=== PATIENT | female | born 2000 | race American Indian/Alaskan Native ===

== ENCOUNTER 2019-02-07 11:02 | Emergency (ER) | payer MEDICAID ==
[2019-02-07 11:33] LABS: Basophils % (Auto) 0.6 % (0.0-1.8); Eosinophils # (Auto) 0.1 K/mm3 (0.0-0.4); Eosinophils % (Auto) 1.1 % (0.0-4.3); Hematocrit 37.1 % (30.3-42.9); Hemoglobin 12.3 gm/dl (10.1-14.3); Lymphocytes # (Auto) 2.3 K/mm3 (1.2-5.4); Lymphocytes % (Auto) 32.4 % (13.4-35.0); Mean Corpuscular HGB Conc 33 % (30-34); Mean Corpuscular Volume 81 fl (79-97); Monocytes # (Auto) 0.5 K/mm3 (0.0-0.8); Monocytes % (Auto) 7.4 % (0.0-7.3); Platelet Count 197 K/mm3 (140-440); Red Blood Count 4.57 M/mm3 (3.65-5.03); Red Cell Distribution Width 15.5 % (13.2-15.2)
[2019-02-07 12:19] VITALS: BP 121/69
--- NOTE | 2019-02-07 12:20 | Emergency Department Report ---
ED Female HPI - General Chief complaint: Vaginal Bleeding Stated complaint: VAGINAL BLEEDING Time Seen by Provider: 02/07/19 12:14 Source: patient Mode of arrival: Ambulatory Limitations: No Limitations - History of Present Illness Initial comments: Patient is 18 years old female 3 para 0 at 12 weeks gestation followed by [facility]. Patient presented to the ER complaining of vaginal bleeding and lower abdominal cramping started this morning. Patient denied any nausea or vomiting. No dizziness, shortness of breath or chest pain. MD Complaint: vaginal bleeding, pelvic pain -: This morning Location: suprapubic Severity: moderate Severity scale (0 -10): 4 Quality: cramping Consistency: intermittent Are you Now?: Yes (12 wks) - Related Data Sexually active: Yes Allergies Allergy/AdvReac Type Severity Reaction Status Date / Time No Known Allergies Allergy Unverified 02/07/19 11:04 ED Review of Systems ROS: Stated complaint: VAGINAL BLEEDING Other details as noted in HPI Comment: All other systems reviewed and negative Constitutional: denies: chills, fever Respiratory: denies: cough, orthopnea, shortness of breath, SOB with exertion, SOB at rest, wheezing Cardiovascular: denies: chest pain, palpitations Gastrointestinal: denies: abdominal pain, nausea, vomiting, diarrhea, c onstipation, hematemesis, melena, hematochezia Musculoskeletal: denies: back pain Neurological: denies: headache, weakness, numbness, paresthesias, confusion ED Past Medical Hx - Past Medical History Previous Medical History?: No - Surgical History Past Surgical History?: Yes Hx Appendectomy: Yes - Social History Smoking Status: Never Smoker Substance Use Type: None ED Physical Exam - General Limitations: No Limitations - Head Head exam: Present: atraumatic, normocephalic, normal inspection - Eye Eye exam: Present: normal appearance, PERRL - ENT ENT exam: Present: normal exam, normal orophraynx, mucous membranes moist - Neck Neck exam: Present: normal inspection, full ROM. Absent: tenderness, meningismus, lymphadenopathy, thyromegaly - Respiratory Respiratory exam: Present: normal lung sounds bilaterally. Absent: respiratory distress, wheezes, rales, rhonchi, chest wall tenderness, accessory muscle use, decreased breath sounds, prolonged expiratory - Cardiovascular Cardiovascular Exam: Present: regular rate, normal rhythm, normal heart sounds - GI/Abdominal GI/Abdominal exam: Present: soft, normal bowel sounds. Absent: distended, tenderness, guarding, rebound, rigid, organomegaly, mass, bruit, pulsatile mass - Extremities Exam Extremities exam: Present: normal inspection, full ROM, normal capillary refill. Absent: tenderness, pedal edema, calf tenderness - Back Exam Back exam: Present: normal inspection, full ROM. Absent: tenderness, CVA tenderness (R), CVA tenderness (L), muscle spasm, paraspinal tenderness, vertebral tenderness - Neurological Exam Neurological exam: Present: alert, oriented X3, CN II-XII intact, normal gait, reflexes normal - Psychiatric Psychiatric exam: Present: normal mood - Skin Skin exam: Present: warm, intact, normal color ED Course Vital Signs 02/07/19 02/07/19 02/07/19 11:05 12:14 12:15 Temperature 98.2 F Pulse Rate 96 H Respiratory 18 Rate Blood Pressure 132/80 Blood Pressure [Left] O2 Sat by Pulse 100 99 99 Oximetry 02/07/19 12:19 Temperature 98.8 F Pulse Rate 71 Respiratory Rate Blood Pressure Blood Pressure 121/69 [Left] O2 Sat by Pulse Oximetry ED Medical Decision Making - Lab Data Result diagrams: 02/07/19 11:18 - Radiology Data Radiology results: report reviewed Referring Physician: MICHAEL FLANNERY Patient Name: JANETTE MOREIRA Date of : 2000 Sex: Female Report Date: 2019-02-07 Report Status: [place] [address] Ultrasound Report Signed Patient: JANETTE MOREIRA MR#: [id number] : 2000 Acct:[id number] Age/Sex: 18 / F ADM Date: 02/07/19 Loc: ED Attending Dr: Ordering Physician: MICHAEL FLANNERY Date of Service: 02/07/19 Procedure(s): US OB transvaginal Accession Number(s): [id number] cc: MICHAEL FLANNERY PROCEDURE: US OB <= 14 WEEKS FETUS, US OB TRANSVAGINAL TECHNIQUE: Real-time transabdominal and transvaginal sonography of the pelvis was performed with image documentation. Measurements were obtained to determine age/size. M- mode Doppler was used to document heartbeat. HISTORY: Vaginal bleeding COMPARISONS: None . FINDINGS: MATERNAL: Uterus and cervix: The cervix is closed measures 3.3 cm in length. Small amount of fluid within the cervix. Adnexa and ovaries: Right ovary measures 2.1 x 2 x 2 cm. There is a thick-walled 1.5 x 1.1 x 1.3 cm cyst likely representing a of a corpus luteum cyst. IUP: Single live intrauterine gestation. Cardiac activity: Regular rhythm at 159 bpm. BIOMETRY: [place]-rump length: 5.75 cm, corresponding to a gestational age of 12 weeks, 2 days, with estimated date of delivery of 08/20/2019 IMPRESSION: Single live intrauterine gestation at 12 weeks, 2 days. Estimated due date: 08/20/2019. Small amount of free fluid in the cervix, which remains elongated. No cervical funneling. This document is electronically signed by Africa Armstrong MD., February 07 2019 03:12:12 PM ET Transcribed By: AISHA Dictated By: AFRICA ARMSTRONG MD Electronically Authenticated By: AFRICA ARMSTRONG MD Signed Date/Time: 02/07/19 1514 DD/ 1303 TD/TT: 02/07/19 1428 - Medical Decision Making Patient is 18 years old female 3 para 0 at 12 weeks gestation followed by [facility]. Patient presented to the ER complaining of vaginal bleeding and lower abdominal cramping started this morning. Patient denied any nausea or vomiting. No dizziness, shortness of breath or chest pain. The patient advised to follow-up with her OB doctor in the next 2-3 days. Critical care attestation.: If time is entered above; I have spent that time in minutes in the direct care of this critically ill patient, excluding procedure time. ED Disposition Clinical Impression: Vaginal bleeding before 22 weeks gestation Disposition: DC-01 TO HOME OR SELFCARE Is pt being admited?: No Condition: Stable Instructions: Abdominal Pain in (ED) Referrals: PRIMARY MEDICAL CARE [Provider Group] - 3-5 Days
--- NOTE | 2019-02-07 15:14 | Ultrasound Report ---
PROCEDURE: US OB <= 14 WEEKS FETUS, US OB TRANSVAGINAL TECHNIQUE: Real-time transabdominal and transvaginal sonography of the pelvis was performed with lev ge documentation. Measurements were obtained to determine age/size. M-mode Doppler was used to document heartbeat. HISTORY: Vaginal bleeding COMPARISONS: None . FINDINGS: MATERNAL: Uterus and cervix: The cervix is closed measures 3.3 cm in length. Small amount of fluid within the cervix. Adnexa and ovaries: Right ovary measures 2.1 x 2 x 2 cm. There is a thick-walled 1.5 x 1.1 x 1.3 cm c yst likely representing a of a corpus luteum cyst. IUP: Single live intrauterine gestation. Cardiac activity: Regular rhythm at 159 bpm. BIOMETRY: [place]-rump length: 5.75 cm, corresponding to a gestational age of 12 weeks, 2 days, with estimated da te of delivery of 08/20/2019 IMPRESSION: Single live intrauterine gestation at 12 weeks, 2 days. Estimated due date: 08/20/2019. Small amount of free fluid in the cervix, which remains elongated. No cervical funneling. This document is electronically signed by Africa Armstrong MD., February 07 2019 03:12:12 PM ET
== END 2019-02-07 14:30 | disposition home or self-care (01) ==
LOC: ED 11:02
DX: O46.91 Antepartum hemorrhage, unspecified, first trimester (principal); Z3A.12 12 weeks gestation of pregnancy; Z90.49 Acquired absence of other specified parts of digestive tract
CPT/HCPCS: 36415; 76801; 76817; 84702; 85025; 86900; 86901; 99284

== ENCOUNTER 2019-12-27 12:01 | Emergency (ER) | payer SELFPAY ==
--- NOTE | 2019-12-27 12:46 | Emergency Department Report ---
Blank Doc - Documentation Documentation: 19-year-old female that presents with dysuria and urinary frequency. This initial assessment/diagnostic orders/clinical plan/treatment(s) is/are subject to change based on patient's health status, clinical progression and re- assessment by fellow clinical providers in the ED. Further treatment and workup at subsequent clinical providers discretion. Patient/guardians urged not to elope from the ED as their condition may be serious if not clinically assessed and managed. Initial orders include: 1- Patient sent to [facility] for further evaluation and treatment 2- UA
[2019-12-27 12:49] VITALS: BP 135/80
[2019-12-27 14:17] LABS: Bacteria,Urine 1+ /HPF (Negative); Bilirubin,Urine NEG (Negative); Blood,Urine NEG (Negative); Color,Urine Yellow (Yellow); Mucus,Urine 3+ /HPF; Protein,Urine <15 mg/dL mg/dL (Negative); Urobilinogen,Urine < 2.0 mg/dL (<2.0)
--- NOTE | 2019-12-27 16:12 | Emergency Department Report ---
ED Female HPI - General Chief complaint: Urogenital-Female Stated complaint: UTI Time Seen by Provider: 12/27/19 12:46 Source: patient Mode of arrival: Ambulatory Limitations: No Limitations - History of Present Illness Initial comments: This is a 19-year-old -[place] female who presents to the emergency room with urinary frequency, urgency, and pelvic pressure for 3 days. Last menstrual period was in 2018. Patient states recently delivered vaginally and have a IUD. No significant past medical history. Denies vaginal discharge, fever, chills, dysuria, and back pain. MD Complaint: pelvic pain Onset/Timin -: days(s) Location: suprapubic Radiation: non-radiating Severity: mild Severity scale (0 -10): 3 Quality: other (Pressure) Consistency: intermittent Worsens with: urination Are you Now?: No Last Menstrual Period: 04/30/18 EDC: 02/04/19 Associated Symptoms: denies other symptoms - Related Data Sexually active: Yes Previous Rx's Medication Instructions Recorded Last Taken Type Phenazopyridine [Pyridium] 200 mg PO TID #6 tab 12/27/19 Unknown Rx Sulfamethoxazole/Trimethoprim 1 each PO BID #6 tablet 12/27/19 Unknown Rx [Bactrim DS TAB] Allergies Allergy/AdvReac Type Severity Reaction Status Date / Time No Known Allergies Allergy Unverified 02/07/19 11:04 ED Review of Systems ROS: Stated complaint: UTI Other details as noted in HPI Constitutional: denies: chills, fever Respiratory: denies: cough, shortness of breath, wheezing Cardiovascular: denies: chest pain, palpitations Gastrointestinal: abdominal pain. denies: nausea, diarrhea Genitourinary: urgency, frequency. denies: dysuria, discharge Musculoskeletal: denies: back pain, joint swelling, arthralgia Skin: denies: rash, lesions Neurological: denies: headache, weakness, paresthesias Psychiatric: denies: anxiety, depression ED Past Medical Hx - Past Medical History Previous Medical History?: No - Surgical History Past Surgical History?: Yes Hx Appendectomy: Yes - Social History Smoking Status: Never Smoker Substance Use Type: Marijuana - Medications Home Medications: Home Medications Medication Instructions Recorded Confirmed Last Taken Type Phenazopyridine [Pyridium] 200 mg PO TID #6 tab 12/27/19 Unknown Rx Sulfamethoxazole/Trimethoprim 1 each PO BID #6 tablet 12/27/19 Unknown Rx [Bactrim DS TAB] ED Physical Exam - General Limitations: No Limitations General appearance: alert, in no apparent distress, obese (Morbidly obese thinks) - Respiratory Respiratory exam: Present: normal lung sounds bilaterally. Absent: respiratory distress - Cardiovascular Cardiovascular Exam: Present: regular rate, normal rhythm. Absent: systolic murmur, diastolic murmur, rubs, gallop - GI/Abdominal GI/Abdominal exam: Present: soft, normal bowel sounds. Absent: distended, tenderness, guarding, rebound, rigid - Extremities Exam Extremities exam: Present: normal inspection - Back Exam Back exam: Absent: CVA tenderness (R), CVA tenderness (L) - Neurological Exam Neurological exam: Present: alert, oriented X3, normal gait - Psychiatric Psychiatric exam: Present: normal affect, normal mood - Skin Skin exam: Present: warm, dry, intact, normal color. Absent: rash ED Course Vital Signs 12/27/19 12:46 Temperature 97.9 F Pulse Rate 89 Respiratory 18 Rate Blood Pressure 135/80 O2 Sat by Pulse 96 Oximetry ED Medical Decision Making - Lab Data Lab Results 12/27/19 12/27/19 Range/Units 13:43 13:45 HCG, Qual Negative (Negative) Urine Color Yellow (Yellow) Urine Turbidity Slightly-cloudy (Clear) Urine pH 5.0 (5.0-7.0) Ur Specific Iva 1.019 (1.003-1.030) Urine Protein <15 mg/dl (Negative) mg/dL Urine Glucose (UA) Neg (Negative) mg/dL Urine Ketones Neg (Negative) mg/dL Urine Blood Neg (Negative) Urine Nitrite Neg (Negative) Urine Bilirubin Neg (Negative) Urine Urobilinogen < 2.0 (<2.0) mg/dL Ur Leukocyte Esterase Lg (Negative) Urine WBC (Auto) 141.0 H (0.0-6.0) /HPF Urine RBC (Auto) 7.0 (0.0-6.0) /HPF U Epithel Cells (Auto) 5.0 (0-13.0) /HPF Urine Bacteria (Auto) 1+ (Negative) /HPF Urine Mucus 3+ /HPF - Medical Decision Making This is a 19-year-old -[place] female who presents to the emergency room with urinary frequency, urgency, and pelvic pressure for 3 days. Vitals are stable. Patient is nontoxic appearing and in no acute distress. Work-up: Urinalysis and urine test. There is a large amount of leukocyte Estrace and elevated WBCs on urinalysis. Negative test. Abdomen is nontender on exam. Patient will be treated for acute cystitis with antibiotics. Discharged home stable with strict return instructions. Follow-up with PCP if worsening symptoms after 2 to 3 days of therapy. Critical care attestation.: If time is entered above; I have spent that time in minutes in the direct care of this critically ill patient, excluding procedure time. ED Disposition Clinical Impression: UTI symptoms Acute cystitis Qualifiers: Hematuria presence: without hematuria Qualified Code(s): N30.00 - Acute cystitis without hematuria Disposition: TO HOME OR SELFCARE Is pt being admited?: No Condition: Stable Instructions: Urinary Tract Infection in Women (ED) Additional Instructions: Increase fluid intake to 1 L to 2 L daily. Complete antibiotics as prescribed. Follow-up with pending urine culture labs in 3 to 5 days to make sure you were prescribed the correct medication for urinary tract infection. Follow-up with your primary care doctor or return to the emergency room with worsening symptoms. Prescriptions: Sulfamethoxazole/Trimethoprim [Bactrim DS TAB] 1 each PO BID #6 tablet Phenazopyridine [Pyridium] 200 mg PO TID #6 tab Referrals: [facility] [Outside] - 3-5 Days [facility] [Outside] - 3-5 Days [facility] [Outside] - 3-5 Days Forms: Work/School Release Form(ED) Time of Disposition: 16:14
== END 2019-12-27 16:24 | disposition home or self-care (01) ==
LOC: ED 12:01
DX: N30.00 Acute cystitis without hematuria (principal); F12.10 Cannabis abuse, uncomplicated; Z90.49 Acquired absence of other specified parts of digestive tract; Z79.899 Other long term (current) drug therapy
CPT/HCPCS: 36415; 81001; 84703; 87086

== ENCOUNTER 2020-01-09 03:10 | Emergency (ER) | payer MEDICAID ==
[2020-01-09 03:27] VITALS: BP 154/107
[2020-01-09 04:08] LABS: Bilirubin,Urine NEG (Negative); Blood,Urine NEG (Negative); Color,Urine Yellow (Yellow); Mucus,Urine FEW /HPF; Protein,Urine <15 mg/dL mg/dL (Negative); Urobilinogen,Urine < 2.0 mg/dL (<2.0)
[2020-01-09 04:39] LABS: Hematocrit 39.4 % (30.3-42.9); Hemoglobin 12.5 gm/dl (10.1-14.3); Mean Corpuscular HGB Conc 32 % (30-34); Mean Corpuscular Volume 78 fl (79-97); Platelet Count 248 K/mm3 (140-440); Red Blood Count 5.06 M/mm3 (3.65-5.03); Red Cell Distribution Width 16.6 % (13.2-15.2)
[2020-01-09 05:02] LABS: Alanine Aminotransferase 22 units/L (7-56); Albumin 3.9 g/dL (3.9-5); BUN/Creatinine Ratio 20; Blood Urea Nitrogen 16 mg/dL (7-17); Calcium 9.3 mg/dL (8.4-10.2); Hemolysis Index 22
[2020-01-09 05:16] LABS: Basophils % (Manual) 0 % (0.0-1.8); Total Cells Counted 100
[2020-01-09 05:17] LABS: Platelet Estimate Consistent w Auto
--- NOTE | 2020-01-09 07:48 | Emergency Department Report ---
ED Abdominal Pain HPI - General Chief Complaint: Abdominal Pain Stated Complaint: ABD PAIN Time Seen by Provider: 01/09/20 07:32 Source: patient Mode of arrival: Ambulatory Limitations: No Limitations - History of Present Illness Initial Comments: 19-year-old obese female presents to the emergency room complaining of intermittent epigastric pain x2 months. Patient states that she was evaluated at [facility] and was placed on famotidine. Patient reports that she last took her famotidine at 2 AM. Patient states that it has improved and she has no pain at this moment. Patient does report she took her last pill. Patient reported she had a refill but when she called [facility] reported that she had none. Patient has not followed up with a crm technical lead or a primary care provider. Patient denies any nausea vomiting no vaginal bleeding no vaginal discharge. MD Complaint: abdominal pain Onset/Timin -: month(s) Location: epigastric Severity scale (0 -10): 0 Consistency: intermittent Improves With: medication Worsens With: eating Associated Symptoms: denies other symptoms - Related Data Previous Rx's Medication Instructions Recorded Last Taken Type Phenazopyridine [Pyridium] 200 mg PO TID #6 tab 12/27/19 Unknown Rx Sulfamethoxazole/Trimethoprim 1 each PO BID #6 tablet 12/27/19 Unknown Rx [Bactrim DS TAB] Famotidine [Pepcid] 10 mg PO BID #60 tablet 01/09/20 Unknown Rx Allergies Allergy/AdvReac Type Severity Reaction Status Date / Time No Known Allergies Allergy Unverified 01/09/20 03:23 ED Review of Systems ROS: Stated complaint: ABD PAIN Other details as noted in HPI Comment: All other systems reviewed and negative ED Past Medical Hx - Surgical History Hx Appendectomy: Yes - Social History Smoking Status: Never Smoker Substance Use Type: Alcohol, Marijuana - Medications Home Medications: Home Medications Medication Instructions Recorded Confirmed Last Taken Type Phenazopyridine [Pyridium] 200 mg PO TID #6 tab 12/27/19 Unknown Rx Sulfamethoxazole/Trimethoprim 1 each PO BID #6 tablet 12/27/19 Unknown Rx [Bactrim DS TAB] Famotidine [Pepcid] 10 mg PO BID #60 tablet 01/09/20 Unknown Rx ED Physical Exam - General Limitations: No Limitations General appearance: alert, in no apparent distress - Head Head exam: Present: atraumatic, normocephalic - Eye Eye exam: Present: normal appearance - ENT ENT exam: Present: mucous membranes moist - Neck Neck exam: Present: normal inspection, full ROM - Respiratory Respiratory exam: Present: normal lung sounds bilaterally. Absent: respiratory distress - Cardiovascular Cardiovascular Exam: Present: regular rate, normal rhythm. Absent: systolic murmur, diastolic murmur, rubs, gallop - GI/Abdominal GI/Abdominal exam: Present: soft, normal bowel sounds. Absent: distended, tenderness - Back Exam Back exam: Present: normal inspection - Neurological Exam Neurological exam: Present: alert, oriented X3 - Psychiatric Psychiatric exam: Present: normal affect, normal mood - Skin Skin exam: Present: warm, dry, intact, normal color. Absent: rash ED Course Vital Signs 01/09/20 03:20 Temperature 98.1 F Pulse Rate 87 Respiratory 18 Rate Blood Pressure 154/107 O2 Sat by Pulse 98 Oximetry ED Medical Decision Making - Lab Data Result diagrams: 01/09/20 03:29 01/09/20 03:29 - Medical Decision Making 19-year-old obese female presents to the emergency room complaining of intermittent epigastric pain x2 months. Patient states that she was evaluated at [facility] and was placed on famotidine. Patient reports that she last took her famotidine at 2 AM. Patient states that it has improved and she has no pain at this moment. Patient does report she took her last pill. Patient reported she had a refill but when she called [facility] reported that she [facility]. Patient has not followed up with a crm technical lead or a primary care provider. Patient denies any nausea vomiting no vaginal bleeding no vaginal discharge. Patient's labs were all within normal limits. Patient will be given a prescription for famotidine and a referral to a crm technical lead. Patient verbalized understanding Critical care attestation.: If time is entered above; I have spent that time in minutes in the direct care of this critically ill patient, excluding procedure time. ED Disposition Clinical Impression: Acid reflux Disposition: DC-01 TO HOME OR SELFCARE Is pt being admited?: No Does the pt Need Aspirin: No Condition: Stable Instructions: Abdominal Pain (ED), Gastroesophageal Reflux Disease (ED) Additional Instructions: Please take famotidine as prescribed. Famotidine is [id number] and your insurance will not cover it. Follow-up with a crm technical lead. Prescriptions: Famotidine [Pepcid] 10 mg PO BID #60 tablet Referrals: PRIMARY CARE, [Primary Care Provider] - 3-5 Days [facility] [Provider Group] - 3-5 Days
== END 2020-01-09 08:03 | disposition home or self-care (01) ==
LOC: ED 03:10
DX: K21.9 Gastro-esophageal reflux disease without esophagitis (principal); Z90.49 Acquired absence of other specified parts of digestive tract; F12.10 Cannabis abuse, uncomplicated
CPT/HCPCS: 36415; 80053; 81001; 84703; 85007; 85025; 99283